=== PATIENT | female | born 1990 | race Caucasian/White ===

== ENCOUNTER 2017-01-26 23:03 | Emergency (ER) | payer OTHER ==
[2017-01-26 23:11] VITALS: BMI 38.4
[2017-01-27] MEDS ORDERED: ALBUTEROL SO4 2.5/IPRATROPIUM 0.5 INH SOL 3 ML VIAL.NEB. NEB STA (00:22)
--- NOTE | 2017-01-27 00:22 | PDOC ---
History of Present Illness - General History Source: Patient Exam Limitations: No Limitations - History of Present Illness Initial Comments: 01/27/17 00:41 The patient is a 26 year old female with significant past medical history of asthma (on prednisone prn and h/o of hospitalizations and intubations) who presents to the ED for SOB, chest tightness, and lip tingling prior to arrival. Patient reports she was eating dinner when she suddenly felt short of breath and chest tightness. She also felt some lip tingling. States she has had the same dinner many times before. She took a claritin, which worsen her symptoms. States she did not take her prednisone prior to arrival. At time of evaluation, she is still feeling chest tightness and wheezing. The patient denies fever, chills, diaphoresis, cough, chest pain, and palpitations. The patient denies abdominal pain, nausea, vomiting, and diarrhea. Allergies: NKDA Social History: No alcohol, tobacco, or drug use reported. Past Surgical History: , Cholecystectomy, Tonsillectomy, and Adenoidectomy PCP: None reported <Connie Rojas - Last Filed: 01/27/17 00:41> - General History Source: Patient <Gold Lopez - Last Filed: 01/27/17 01:49> - General Chief Complaint: Respiratory Stated Complaint: NUMBNESS Time Seen by Provider: 01/27/17 00:17 Past History <Connie Rojas - Last Filed: 01/27/17 00:41> - Past Medical History Asthma: Yes (intubation related to asthma/PNA) - Surgical History Cholecystectomy: Yes - Family Disease History Family Disease History: Diabetes: Mother, Heart Disease: Father ( of [place]), [place] : Grandparents (paternal grandmother liver [place]) - Psycho/Social/Smoking Cessation Hx Anxiety: No Suicidal Ideation: No Smoking History: Never smoked Have you smoked in the past 12 months: No Number of Cigarettes Smoked Daily: 0 If you are a former smoker, when did you quit?: 9 YEARS Hx Alcohol Use: Yes (SOCIAL) Drug/Substance Use Hx: No Substance Use Type: None Hx Substance Use Treatment: No <Gold Lopez - Last Filed: 01/27/17 01:49> - Past Medical History Allergies/Adverse Reactions: Allergies Allergy/AdvReac Type Severity Reaction Status Date / Time No Known Allergies Allergy Verified 01/26/17 23:08 Home Medications: Ambulatory Orders Albuterol Sulfate Inhaler - [Ventolin HFA Inhaler -] 1 - 2 inh PO Q4H #1 inhaler 10/07/15 Fluticasone/Salmeterol [Advair 250-50 Diskus] 1 each IH BID 02/08/16 Montelukast Na [Singulair -] 10 mg PO HS 02/08/16 Ondansetron [Zofran -] 4 mg PO TID PRN #21 tablet 08/19/16 Prednisone [Deltasone -] 20 mg PO DAILY 08/19/16 Prednisone [Deltasone -] 40 mg PO DAILY #6 tablet 01/27/17 Review of Systems - Review of Systems Able to Perform ROS?: Yes Comments:: 01/27/17 00:41 CONSTITUTIONAL: Absent: fever, no chills, no fatigue EYES: Absent: visual changes ENT: +lip tingling Absent: ear pain, no sore throat CARDIOVASCULAR: Absent: chest pain, no palpitations RESPIRATORY: +SOB, chest tightness Absent: cough GI: Absent: abdominal pain, no nausea, no vomiting, no constipation, no diarrhea GENITOURINARY: Absent: dysuria, no frequency, no hematuria MUSCULOSKELETAL: Absent: back pain, no arthralgia, no myalgia SKIN: Absent: rash NEURO: Absent: headache <Bharrat,Connie - Last Filed: 01/27/17 00:41> *Physical Exam - Vital Signs Last Vital Signs Temp Pulse Resp BP Pulse Ox 98.1 F 85 20 137/96 94 L 01/26/17 23:08 01/26/17 23:08 01/26/17 23:08 01/26/17 23:08 01/26/17 23:08 - Physical Exam Comments: 01/27/17 00:41 GENERAL: Well-appearing, well-nourished. No apparent distress. HEENT: Normocephalic, atraumatic. PERRL, EOM intact. Oropharynx is clear. No drooling. No hot potato voice. CARDIOVASCULAR: Normal S1, S2. Regular rate and rhythm. PULMONARY: No evidence of respiratory distress. No conversation dyspnea. Speaks in full sentences. No retractions. Scattered wheezing. No rales or rhonchi. No stridor. ABDOMEN: Soft, non-distended, non-tender. EXTREMITIES: Normal ROM in all four extremities. No gross deformities. SKIN: Warm, dry. No rash NEUROLOGICAL: No focal neurological deficits. <Connie Rojas - Last Filed: 01/27/17 00:41> - Vital Signs Last Vital Signs Temp Pulse Resp BP Pulse Ox 98.1 F 85 20 137/96 94 L 01/26/17 23:08 01/26/17 23:08 01/26/17 23:08 01/26/17 23:08 01/26/17 23:08 <Gold Lopez - Last Filed: 01/27/17 01:49> Medical Decision Making - Medical Decision Making 01/27/17 01:48 Dr. Lopez: The scribe's documentation has been prepared under my direction and personally reviewed by me in its entirery. I confirm that the note above accurately reflects all work, treatment, procedures, and medical decision making performed by me. Patient feels better after treatment in the department. Pt to be discharged on 3 days worth of prednisone. Advise to follow up with her pcp or the doctor referred. <Gold Lopez - Last Filed: 01/27/17 01:49> *DC/Admit/Observation/Transfer - Attestations Scribe Attestion: 01/27/17 00:41 Documentation prepared by Connie Rojas, acting as medical data analyst for Gold Lopez MD/. <Connie Rojas - Last Filed: 01/27/17 00:41> - Discharge Dispostion Admit: No <Godl Lopez - Last Filed: 01/27/17 01:49> Diagnosis at time of Disposition: Asthma exacerbation Allergic reaction Qualifiers: Encounter type: initial encounter Qualified Code(s): T78.40XA - Allergy, unspecified, initial encounter - Discharge Dispostion Disposition: HOME Condition at time of disposition: Stable - Referrals Referrals: STAFF,NOT ON [Primary Care Provider] - Sheridan Martinez MD [Staff Physician] - - Patient Instructions Printed Discharge Instructions: DI for Asthma -- Adult, DI for General Allergic Reactions
[2017-01-27] MEDS ORDERED: predniSONE 20 MG TABLET (UD) PO ONE (00:28)
[2017-01-27] MEDS ORDERED: predniSONE 20 MG TABLET (UD) ONE (00:54)
[2017-01-27 02:23] VITALS: BP 134/89; PULSE 78; TEMP 98
== END 2017-01-27 02:24 | disposition home or self-care (01) ==
LOC: JER 23:03
PROC: 3E0F7GC Introduction of Other Therapeutic Substance into Respiratory Tract, Via Natural or Artificial Opening (ICD-10-PCS; principal; 2017-01-26)
DX: J45.909 Unspecified asthma, uncomplicated (principal); T78.40XA Allergy, unspecified, initial encounter; X58.XXXA Exposure to other specified factors, initial encounter
CPT/HCPCS: 99282-25

== ENCOUNTER 2017-04-04 15:44 | Emergency (ER) | payer OTHER ==
[2017-04-04 16:22] VITALS: BP 122/87; PULSE 76; TEMP 98.1; BMI 38.4
--- NOTE | 2017-04-04 16:58 | PDOC ---
History of Present Illness - General Chief Complaint: Injury Stated Complaint: LAB VARIANCE (PCP SENT) Time Seen by Provider: 04/04/17 16:33 History Source: Patient Exam Limitations: No Limitations - History of Present Illness Initial Comments: 04/04/17 16:53 Patient is a 27-year-old female, history of chronic sinus infections and asthma states yesterday she was in the shower became lightheaded and fell out of shower was witnessed by her who states that he is unsure if she hit her head however did hit the left side of her body including her arm. Patient was seen at urgent care at [facility] who told her to come to emergency department for evaluation and CT scan of the head, also states that she had rash to occipital area wants to rule out for Lyme, recent fatigue. She denies any recent travel, denies any bug bite. Patient states that she does feel fatigued however feels like this in a regular basis. Patient denies any dizziness, no nausea vomiting, no unsteady gait, no visual disturbance. Patient with left wrist pain was performed at urgent care negative for acute fracture Hugo wrap was on. Past Medical History: Denies. Allergies: No known allergies Medications: See medication list Family History: Non-contributory Social History: Denies smoking, alcohol use, or IVDU Review of Systems GENERAL/CONSTITUTIONAL: No fever or chills. No weakness. No weight change. HEAD, EYES, EARS, NOSE AND THROAT: No change in vision. No ear pain or discharge. No sore throat. CARDIOVASCULAR: No chest pain or shortness of breath. RESPIRATORY: No cough, wheezing, or hemoptysis. GASTROINTESTINAL: No nausea, vomiting, diarrhea or constipation. No rectal bleeding. GENITOURINARY: No dysuria, frequency, or change in urination. MUSCULOSKELETAL: No joint or muscle swelling or pain. No neck or back pain. SKIN AND BREASTS: No rash or easy bruising. NEUROLOGIC: No headache, vertigo, loss of consciousness, or loss of sensation. PSYCHIATRIC: No depression or anxiety. ENDOCRINE: No increased thirst. No abnormal weight change. HEMATOLOGIC/LYMPHATIC: No anemia, easy bleeding, or history of blood clots. ALLERGIC/IMMUNOLOGIC: No hives or skin allergy. No latex allergy. Physical Exam: GENERAL: The patient is awake, alert, and fully oriented, in no acute distress. HEAD: Normal with no signs of trauma. There is no visible rash or erythema to occipital area as described in referral from [facility]. EYES: Pupils equal, round and reactive to light, extraocular movements intact, sclera anicteric, conjunctiva clear. ENT: Ears normal, nares patent, oropharynx clear without exudates. Moist mucous membranes. No uvula deviation NECK: Normal range of motion, supple without lymphadenopathy, JVD, or masses. LUNGS: Breath sounds equal, clear to auscultation bilaterally. No wheezes, and no crackles. HEART: Regular rate and rhythm, normal S1 and S2 without murmur, rub or gallop. ABDOMEN: Soft, nontender, normoactive bowel sounds. No guarding, no rebound. No masses. No bruising or abrasions MUSCULOSKELETAL: Normal range of motion, no edema. No clubbing or cyanosis. No cords, erythema, or tenderness. No CVA Tenderness with fist palpation. NEUROLOGICAL: Cranial nerves II through XII grossly intact. Normal speech, normal gait. SKIN: Warm, Dry, normal turgor, no rashes or lesions noted. 04/04/17 16:58 Past History - Past Medical History Allergies/Adverse Reactions: Allergies Allergy/AdvReac Type Severity Reaction Status Date / Time No Known Allergies Allergy Verified 04/04/17 16:17 Home Medications: Ambulatory Orders Amox-Tr/K Cl [Augmentin - 875Mg Tablet] 1 tab PO BID #14 tablet 04/04/17 Fluticasone Prop 0.05% Nasal [Flonase -] 1 - 2 spray NS BID #1 spray.pump Asthma: Yes (intubation related to asthma/PNA) - Surgical History Cholecystectomy: Yes - Family Disease History Family Disease History: Diabetes: Mother, Heart Disease: Father ( of [place]), [place] : Grandparents (paternal grandmother liver [place]) - Immunization History Immunization Up to Date: Yes - Psycho/Social/Smoking Cessation Hx Anxiety: No Suicidal Ideation: No Smoking History: Never smoked Have you smoked in the past 12 months: No Number of Cigarettes Smoked Daily: 0 If you are a former smoker, when did you quit?: 10YEARS Information on smoking cessation initiated: No Hx Alcohol Use: No Drug/Substance Use Hx: No Substance Use Type: None Hx Substance Use Treatment: No *Physical Exam - Vital Signs Last Vital Signs Temp Pulse Resp BP Pulse Ox 98.1 F 76 17 122/87 99 04/04/17 16:18 04/04/17 16:18 04/04/17 16:18 04/04/17 16:18 04/04/17 16:18 Medical Decision Making - Medical Decision Making 04/04/17 17:04 A/P: Patient here for evaluation status post fall yesterday, had questionable hitting her head positive LOC, was seen at urgent care and told to come to emergency department referral sent with the patient for CT scan. Patient also states that practitioner at urgent care noted a rash on occipital area and because fatigue she wants her to rule out Lyme disease however upon arrival there is no rash noted because patient states that she recently feels fatigued although feels fatigued on a regular basis we will send for Lyme test. Also urine , CT scan of the head once urine is negative. Is otherwise awake and alert and oriented, denies any visual disturbance, denies any headache no nausea vomiting, no unsteady gait. 04/04/17 18:45 CT scan of the head demonstrated no acute sinusitis, significant. This may be route of patient is dizziness yesterday which caused her to fall. We'll DC patient home on Augmentin, to continue Flonase. To follow-up in one week for results of Lyme testing I discussed the physical exam findings, ancillary test results and final diagnoses with the patient. I answered all of the patient's questions. The patient was satisfied with the care received and felt comfortable with the discharge plan and treatment plan. The patient will call to arrange follow-up and will return to the Emergency Department with any new, persistent or worsening symptoms. *DC/Admit/Observation/Transfer Diagnosis at time of Disposition: Sinusitis Qualifiers: Sinusitis location: frontal Chronicity: acute Recurrence: recurrent Qualified Code(s): J01.11 - Acute recurrent frontal sinusitis - Discharge Dispostion Disposition: HOME Condition at time of disposition: Good Admit: No - Prescriptions Prescriptions: Amox-Tr/K Cl [Augmentin - 875Mg Tablet] 1 tab PO BID #14 tablet Fluticasone Prop 0.05% Nasal [Flonase -] 1 - 2 spray NS BID #1 spray.pump - Referrals Referrals: Clair Muhammad MD [Primary Care Provider] - Oneil Isaacs MD [Staff Physician] - - Patient Instructions Printed Discharge Instructions: Sinusitis (Alternative Therapy) Additional Instructions: Recommend follow-up with ENT Dr. Isaacs Medication as prescribed until completed Please call [phone] in one week for results of Lyme test - Post Discharge Activity Work/School Note: Back to Work
[2017-04-07 16:33] LABS: IgG P18 Absent (.); IgG P23 Absent (.); IgG P28 Absent (.); IgG P30 Present (.); IgG P39 Present (.); IgG P41 Present (.); IgG P45 Absent (.); IgG P58 Absent (.); IgG P66 Absent (.); IgG P93 Absent (.); IgM P23 Absent (.); IgM P39 Absent (.); IgM P41 Absent (.); LYME IGM WB INTERPRE Negative (.)
== END 2017-04-04 18:56 | disposition home or self-care (01) ==
LOC: JERFT 15:44
DX: J01.11 Acute recurrent frontal sinusitis (principal); Z87.891 Personal history of nicotine dependence; J45.909 Unspecified asthma, uncomplicated; W18.2XXA Fall in (into) shower or empty bathtub, initial encounter; Y93.9 Activity, unspecified; Y92.002 Bathroom of unspecified non-institutional (private) residence as the place of occurrence of the external cause
CPT/HCPCS: 36415; 70450-TC; 84703; 86618; 86666; 99281-25

== ENCOUNTER 2019-06-04 02:00 | Emergency (ER) | payer OTHER ==
[2019-06-04] MEDS ORDERED: ALBUTEROL SO4 2.5/IPRATROPIUM 0.5 INH SOL 3 ML VIAL.NEB. NEB ONE ×2 (02:13→02:20)
[2019-06-04 02:19] VITALS: TEMP 97.1; BMI 25.8
[2019-06-04] MEDS ORDERED: methylPREDNISolone NA SUCC 125 MG/2 ML VIAL IVPUSH ONE (02:20)
--- NOTE | 2019-06-04 02:21 | PDOC ---
History of Present Illness - General Stated Complaint: DIFF BREATHING/ASTHMA Time Seen by Provider: 06/04/19 02:11 - History of Present Illness Initial Comments: 06/04/19 02:17 29 y/o female with a PMH of Asthma (1 intubation, 3 hospitalizations), PNA (w/ extended hospitalization) presents with shortness of breath. Patient states she felt tight all of yesterday and then this morning around 12 a.m. she woke up short of breath. Little relief from her singular and albuterol inhalers. Two month history of productive (greenish sputum) cough for which patient was prescribed Benzoate - no evaluation w/CXR. The patient denies chest pain, lightheadedness, palpitations, nausea/vomiting, diarrhea/constipation. The patient denies recent travel or sick contacts. NKDA Surgical: Gastric Bypass, C/S Past History - Past Medical History Allergies/Adverse Reactions: Allergies Allergy/AdvReac Type Severity Reaction Status Date / Time No Known Allergies Allergy Verified 06/04/19 02:19 Home Medications: Ambulatory Orders Amox-Tr/K Cl [Augmentin - 875Mg Tablet] 1 tab PO BID #14 tablet 04/04/17 Fluticasone Prop 0.05% Nasal [Flonase -] 1 - 2 spray NS BID #1 spray.pump Azithromycin [Zithromax Tri-Johnnie (3 DAYS) -] 500 mg PO DAILY #3 tablet 06/04/19 Asthma: Yes (intubation related to asthma/PNA) - Surgical History Cholecystectomy: Yes - Immunization History Immunization Up to Date: Yes - Psycho Social/Smoking Cessation Hx Smoking History: Never smoked Have you smoked in the past 12 months: No Number of Cigarettes Smoked Daily: 0 If you are a former smoker, when did you quit?: 10YEARS Hx Alcohol Use: No Drug/Substance Use Hx: No Substance Use Type: None Hx Substance Use Treatment: No Review of Systems - Review of Systems Able to Perform ROS?: Yes Constitutional: No: Chills, Fever Respiratory: Yes: Shortness of Breath, Productive cough (greenish sputum) Cardiac (ROS): No: Chest Pain, Lightheadedness ABD/GI: No: Constipated, Diarrhea, Nausea, Vomiting *Physical Exam - Physical Exam Comments: 06/04/19 02:19 Triage VS reviewed Alert, mild distress Respiratory: Scattered A/P expiratory wheezes CV: S1, S2 Abdomen: soft, no TTP, (+) bowel sounds Extremity: ED Treatment Course - LABORATORY CBC & Chemistry Diagram: 06/04/19 02:30 06/04/19 03:00 Medical Decision Making - Medical Decision Making 06/04/19 02:20 29 y/o female with presumptive acute asthma exacerbation. Uncomfortable, SpO2 92% on RA w/increased WOB 06/04/19 02:59 S/p Duo Neb x2, patient more comfortable Labs hemolyzed 06/04/19 03:00 CBC unremarkable 06/04/19 03:02 Patient reassessed @ bedside No wheezing auscultated on posterior lung hoffman 06/04/19 03:43 No infiltrate on CXR, however since patient has h/o two month cough and h/o severe PNA requiring hospitalization, will treat for possible atypical PNA OTD of Zithromax in ED + Z pack 06/04/19 03:49 Patient c/o burning and pain w/IV Zithromax; line flushed x2 and patient continues to c/o burning but no pain Will give PO Zithromax and observe for any possible reaction 06/04/19 03:59 No pain/burning, shortness of breath, pruritus w/PO Zithromax. Will discharge home with Z-pack and return precautions. Clinical Impression: Asthma Exacerbation possibly 2/2 Atypical PNA I discussed the physical exam findings, ancillary test results and final diagnoses with the patient. I answered all of the patient's questions. The patient was satisfied with the care received and felt comfortable with the discharge plan and treatment plan. The patient will return to the Emergency Department with any new, persistent or worsening symptoms. 06/04/19 05:09 Addendum - patient observed for 20 minutes w/no SiSx of anaphylaxis and D/C home Discharge - Discharge Information Problems reviewed: Yes Clinical Impression/Diagnosis: Asthma exacerbation Condition: Fair Disposition: HOME - Admission No - Additional Discharge Information Prescriptions: Azithromycin [Zithromax Tri-Johnnie (3 DAYS) -] 500 mg PO DAILY #3 tablet - Follow up/Referral Referrals: Clair Muhammad MD [Primary Care Provider] - - Patient Discharge Instructions Additional Instructions: We have sent an antibiotic to your pharmacy. Please complete the entire prescribed course Follow up with your primary care doctor in the next 3 days. Return to the Emergency Department for any new/worsening/concerning symptoms. - Post Discharge Activity
[2019-06-04] MEDS ORDERED: DEXAMETHASONE SOD PHOSPHATE 10 MG/1 ML VIAL IVPUSH ONE (02:23)
--- NOTE | 2019-06-04 02:28 | PDOC ---
Attending Attestation - Resident Resident Name: Vee Martines - ED Attending Attestation I have performed the following: I have examined & evaluated the patient, The case was reviewed & discussed with the resident, I agree w/resident's findings & plan - HPI HPI: 06/04/19 04:49 Pt comes with asthma exacerbation. She ahas a cough x 2 months and a cold and the weather is changing and she states that once or twice a year she has a bad asthma attack and she needs prednisone. - Physicial Exam PE: 06/05/19 01:22 Pt has wheeze that is patchy at the end of deep breaths. Afebrile Heart RRR Abd soft NT ND - Medical Decision Making 06/05/19 01:23 Pt has an atypical pneumonia; dry cough x 2 mos. She will be treated with zpak. Asthma optimized with treatment in the ER. Pt will go home with PMD follow up. Breathing well; appears well; vastly improved.
[2019-06-04] MEDS ORDERED: ONDANSETRON 4 MG/2 ML VIAL IVPUSH ONE (02:34)
[2019-06-04] MEDS ORDERED: ONDANSETRON 4 MG/2 ML VIAL ONE (02:35)
[2019-06-04] MEDS ORDERED: DEXAMETHASONE SOD PHOSPHATE 10 MG/1 ML VIAL ONE (02:35)
[2019-06-04 02:42] LABS: BASO % 0.7 % (0-2.0); EOS % 8.1 % (0-4.5); HEMOGLOBIN 12.9 GM/dL (10.7-15.3); LYMPH % 41.5 % (8-40); MCH 28.4 pg (25.7-33.7); MCHC 33.8 g/dl (32.0-36.0); MEAN PLT VOLUME 9.4 fl (7.5-11.1); NEUT % 44.7 % (42.8-82.8); PLATELET COUNT 158 K/MM3 (134-434); RBC 4.52 M/mm3 (3.60-5.2); RDW 13.4 % (11.6-15.6); WHITE BLOOD COUNT 7.1 K/mm3 (4.0-10.0)
[2019-06-04] MEDS ORDERED: AZITHROMYCIN 250 MG TABLET PO ONE ×2 (03:27→03:48)
[2019-06-04] MEDS ORDERED: AZITHROMYCIN IVPB 500 MG/250 ML BAG IVPB ONE (03:29)
[2019-06-04] MEDS: AZITHROMYCIN IVPB 500 MG in DEXTROSE 5%-WATER - 250 ML IVPB ONE ×2 (03:34→03:52)
[2019-06-04 03:46] VITALS: PULSE 86
[2019-06-04] MEDS ORDERED: AZITHROMYCIN 250 MG TABLET ONE (03:50)
[2019-06-04 04:24] LABS: ALBUMIN 3.8 g/dl (3.4-5.0); BILIRUBIN,TOTAL 1.3 mg/dL (0.2-1); BLOOD UREA NITROGEN 12.9 mg/dL (7-18); CALCIUM 8.4 mg/dL (8.5-10.1); CREATININE 0.7 mg/dL (0.55-1.3); POTASSIUM 3.5 mmol/L (3.5-5.1); TOT PROT 6.4 g/dl (6.4-8.2)
== END 2019-06-04 04:32 | disposition home or self-care (01) ==
LOC: JER 02:00
PROC: 3E0F7GC Introduction of Other Therapeutic Substance into Respiratory Tract, Via Natural or Artificial Opening (ICD-10-PCS; principal; 2019-06-04)
PROC: 3E0333Z Introduction of Anti-inflammatory into Peripheral Vein, Percutaneous Approach (ICD-10-PCS; 2019-06-04)
PROC: 3E033GC Introduction of Other Therapeutic Substance into Peripheral Vein, Percutaneous Approach (ICD-10-PCS; 2019-06-04)
DX: J45.901 Unspecified asthma with (acute) exacerbation (principal)
CPT/HCPCS: 36415; 71045-TC-FY; 80053; 84703; 85025; 94640; 96374; 96375; 99284-25; J1100

== ENCOUNTER 2019-09-18 19:05 | Inpatient (IN) | payer OTHER ==
[2019-09-18] MEDS ORDERED: RAPID SEQUENCE INTUBATION KIT NR ONE (19:11)
[2019-09-18] MEDS ORDERED: ALBUTEROL SO4 0.083% IH SOL 2.5 MG/3 ML VIAL.NEB. NEB ONE (19:16)
[2019-09-18] MEDS ORDERED: ALBUTEROL SO4 2.5/IPRATROPIUM 0.5 INH SOL 3 ML VIAL.NEB. NEB ONE (19:16)
[2019-09-18] MEDS ORDERED: MAGNESIUM SULF 50% (8.12 MEQ/2 ML-1 GM VIAL) IVPB ONE (19:18)
[2019-09-18] MEDS ORDERED: DEXAMETHASONE SOD PHOSPHATE 10 MG/1 ML VIAL ONE (19:23)
--- NOTE | 2019-09-18 19:33 | PDOC ---
History of Present Illness - General Chief Complaint: Asthma Stated Complaint: ASTHMA Time Seen by Provider: 09/18/19 19:33 History Source: Patient, Spouse Exam Limitations: No Limitations - History of Present Illness Initial Comments: HPI: 29 y/o female presenting to [facility] ER complaining of shortness of breath and wheezing. Arrived via ems in acute respiratory distress. Given DuoNeb and Epi prior to arrival. Pt has a h/o asthma. Symptoms have been worse over the past month - has used 4 MDIs in 6 weeks. Also complaining of cough productive of clear vs white sputum since June. Worse at night. Started on Azithromycin and Pepcid by ENT two weeks ago. Followed up with PCP on Wednesday and started on Levaquin and steroids for PNA. Has implanted control. Medical Hx: - Asthma, has been intubated once in 2016, but this was for septic PNA (NOT ASTHMA), baseline peak flow 350 per pt Surgical Hx: - Gastric bypass w/ complicated 3 month post-op course, performed at [facility] - Cholecystectomy Review of Systems: 10 point review of systems completed. All systems negative except as noted above. Physical Examination: Vital signs and nursing notes reviewed. Constitutional- Adult female in acute respiratory distress. Found semi-fowlers in resus room. Head- Normocephalic. No obvious external signs of trauma. Neck- Supple, trachea is midline. Cardiovascular / Chest- Tachycardic rate with regular rhythm. No murmur, rubs, clicks, or gallops. Peripheral pulses- radial pulses full. No pretibial edema. Respiratory- Breathing shallow and labored. Subcostal retractions. Equal chest rise and fall. Diffuse expiratory wheezing and rhonchi. Gastrointestinal- Discomfort in RUQ without grimace, rebound, or guarding. Globally, abdomen is soft and nondistended. Neuro- Alert and oriented x4. Moving all four extremities spontaneously. Skin- Warm, dry, and intact. Psych- Affect- appropriate. Mood- normal. Speech was non-labored, non- pressured. MDM: 29 y/o female presenting with acute respiratory distress in setting of several weeks of increased asthmatic symptoms. Afebrile. Vitals remarkable for tachycardia without hypotension. Hypoxic on nasal cannula with restrictive pattern on continuous waveform capnography. Physical exam as described above. Placed on BPAP with improvement of SPO2 and work of breathing. Received additional IBDs and Magnesium. ED sepsis order set initiated. Will obtain CTA of chest evaluate for PE and CTAP to evaluate for right sided abdominal pain as pt is s/p cholecystectomy and complicated gastric bypass surgery. 18 Sep 2019 21:09 PM Pt transitioned from BPAP to nasal cannula. Capnography waveform significantly improved from arrival. Shark fin has resolved. Reviewed laboratory data. Noted elevated lactic acid. Suspect secondary to albuterol administration. Low suspicion for septic infection. Reviewed radiology data. Will treat pt for PNA complicated by moderately severe asthma exacerbation. Ordered Ceftriaxone and Azithromycin for abx coverage. Noted possible ileus. Pt reports several days of constipation that resolved today with milk of magnesia. Three BMs today. 18 Sep 2019 23:26 PM Telephone discussion with resident Dr. Hassan. Verbally appraised of the pts HPI, ED course, and current plan of management. Will admit pt to med/surg for attending Dr. Esparza. Christiano Zheng M.D., PGY2 Emergency Medicine Resident Past History - Past Medical History Allergies/Adverse Reactions: Allergies Allergy/AdvReac Type Severity Reaction Status Date / Time No Known Allergies Allergy Verified 09/18/19 19:44 Home Medications: Ambulatory Orders Fluticasone Prop 0.05% Nasal [Flonase -] 1 - 2 spray NS BID #1 spray.pump Albuterol Sulfate [Albuterol Sulfate Hfa] 2 inh IN QID PRN 09/18/19 Fluticasone Propion/Salmeterol [Wixela 500-50 Inhub] 2 inh IH DAILY 09/18/19 Levofloxacin 750 mg PO DAILY 09/18/19 predniSONE [Deltasone -] 20 mg PO BID 09/18/19 Asthma: Yes (intubation related to asthma/PNA) COPD: No Other medical history: intubated 1 time in past - Surgical History Cholecystectomy: Yes - Immunization History Immunization Up to Date: Yes - Psycho Social/Smoking Cessation Hx Smoking History: Never smoked Have you smoked in the past 12 months: No Number of Cigarettes Smoked Daily: 0 If you are a former smoker, when did you quit?: 10YEARS Information on smoking cessation initiated: No Hx Alcohol Use: No Drug/Substance Use Hx: No Substance Use Type: None Hx Substance Use Treatment: No *Physical Exam - Vital Signs Last Vital Signs Temp Pulse Resp BP Pulse Ox 106 H 32 H 142/87 98 09/18/19 19:14 09/18/19 19:14 09/18/19 19:14 09/18/19 19:15 Vital Signs - Vital Signs #1 Time: 23:02 Blood Pressure: 94/51 BP Location: Right Arm Blood Pressure Position: Sitting Pulse Rate: 81 Respiratory Rate: 20 O2 Sat by Pulse Oximetry (%): 98 Oxygen Delivery Method: Nasal Cannula Oxygen Flow Rate: 3 ED Treatment Course - LABORATORY CBC & Chemistry Diagram: 09/18/19 19:30 09/18/19 19:30 Medical Decision Making - Critical Care Time Total Critical Care Time (minutes): 60 Critical Care Statement: The care of this patient involved high complexity decision making to prevent further life threatening deterioration of the patient 's condition and/or to evaluate & treat vital organ system(s) failure or risk of failure. Discharge - Discharge Information Problems reviewed: Yes Clinical Impression/Diagnosis: Hypoxia Asthma exacerbation Qualifiers: Asthma severity: moderate Asthma persistence: unspecified Qualified Code(s): J45.901 - Unspecified asthma with (acute) exacerbation Pneumonia Qualifiers: Pneumonia type: due to unspecified organism Laterality: bilateral Lung location : unspecified part of lung Qualified Code(s): J18.9 - Pneumonia, unspecified organism Condition: Stable - Admission Yes - Follow up/Referral Referrals: Clair Muhammad MD [Primary Care Provider] - - Patient Discharge Instructions - Post Discharge Activity
--- NOTE | 2019-09-18 19:37 | PDOC ---
Attending Attestation - Resident Resident Name: Christiano Zheng - ED Attending Attestation I have performed the following: I have examined & evaluated the patient, The case was reviewed & discussed with the resident, I agree w/resident's findings & plan - HPI HPI: 09/18/19 22:26 see resident hpi - Physicial Exam PE: 09/18/19 22:26 agree with resident exam - Medical Decision Making 09/18/19 22:26 29-year-old female with history of asthma with intubation x1 in the past with persistent cough for several weeks status post treatment for pneumonia recently now with severe shortness of breath stating she thinks she may need to be intubated on arrival Patient rapidly improved with a short course of BiPAP, magnesium 2 g IV as well as an additional DuoNeb and albuterol nebulizers x2 She is currently off BiPAP and able to have a calm conversation with her Currently awaiting CTA results of the chest to rule out PE versus nonvisualized infiltrate on chest x-ray Incidentally patient noted that she has been having some right-sided abdominal pain CT scan of the abdomen and pelvis performed as well Due to presentation will likely hold for observation versus admission pending results
[2019-09-18 19:48] LABS: BASO % 0.5 % (0-2.0); EOS % 0.2 % (0-4.5); HEMATOCRIT 40.6 % (32.4-45.2); HEMOGLOBIN 13.4 GM/dL (10.7-15.3); LYMPH % 28.5 % (8-40); MCH 28.1 pg (25.7-33.7); MEAN PLT VOLUME 9.9 fl (7.5-11.1); MONO % 5.7 % (3.8-10.2); NEUT % 65.1 % (42.8-82.8); PLATELET COUNT 271 K/MM3 (134-434); RBC 4.78 M/mm3 (3.60-5.2); RDW 14.4 % (11.6-15.6); WHITE BLOOD COUNT 11.9 K/mm3 (4.0-10.0)
[2019-09-18 19:58] LABS: ARTERIAL BLOOD GAS PCO2 40.3 mmHg (35-45); ARTERIAL BLOOD GAS pH 7.35 (7.35-7.45)
[2019-09-18 19:59] LABS: ARTERIAL BLOOD GAS BASE EXCESS -2.9 meq/l (-2-2); ARTERIAL BLOOD GAS PO2 79.3 mmHg (80-100)
[2019-09-18 20:00] LABS: ALLENS TEST POSITIVE
[2019-09-18 20:01] LABS: CARBOXYHEMOGLOBIN < 0.5 % (0-2)
[2019-09-18 20:15] LABS: ALBUMIN 4.4 g/dl (3.4-5.0); ALK PHOS 106 U/L (45-117); ANION GAP 5 MMOL/L (8-16); BLOOD UREA NITROGEN 12.7 mg/dL (7-18); CALCIUM 8.8 mg/dL (8.5-10.1); CHLORIDE 109 mmol/L (98-107); CO2 25 mmol/L (21-32); CREATININE 0.7 mg/dL (0.55-1.3); GLUCOSE,RANDOM 121 mg/dL (74-106); MAGNESIUM 2.3 mg/dL (1.8-2.4); PHOSPHOROUS 4.1 mg/dL (2.5-4.9); POTASSIUM 3.6 mmol/L (3.5-5.1); SGOT/AST 18 U/L (15-37); SGPT/ALT 42 U/L (13-61); SODIUM 139 mmol/L (136-145); TOT PROT 7.4 g/dl (6.4-8.2)
[2019-09-18 21:00] LABS: INR 1.14 (0.83-1.09); PROTHROMBIN TIME (PATIENT) 13.5 SEC (9.7-13.0)
[2019-09-18 21:02] LABS: ACTIVATED PTT 27.9 SECONDS (25.2-36.5)
[2019-09-18] MEDS ORDERED: LACTATED RINGERS SOLUTION 1000 ML INFUS.BAG IV ONE (22:52)
[2019-09-18] MEDS ORDERED: CEFTRIAXONE 2,000 MG in DEXTROSE 5%-WATER - 50 ML IVPB ONE (22:59)
[2019-09-18] MEDS ORDERED: AZITHROMYCIN IVPB 500 MG in DEXTROSE 5%-WATER - 250 ML IVPB ONE (22:59)
[2019-09-18] MEDS ORDERED: CEFTRIAXONE 2 GM/100 ML BAG IVPB ONE (23:22)
[2019-09-19] MEDS ORDERED: AZITHROMYCIN IVPB 500 MG/250 ML BAG IVPB ONE (00:01)
--- NOTE | 2019-09-19 00:09 | PN ---
Teaching Attending Note Name of Resident: Victor M Hassan ATTENDING PHYSICIAN STATEMENT I saw and evaluated the patient. I reviewed the resident's note and discussed the case with the resident. I agree with the resident's findings and plan as documented. SUBJECTIVE: Patient is a 29 year old woman with PMH of Asthma, Gastric bypass and Cholecystectomy presenting to the ER complaining of shortness of breath and wheezing. Arrived via EMS in acute respiratory distress. Given DuoNeb and Epinephrine prior to arrival. Symptoms have been worse over the past month - has used 4 MDIs in 6 weeks. Also complaining of cough productive of clear vs white sputum since June. Worse at night. Started on Azithromycin and Pepcid by ENT two weeks ago. Followed up with PCP on Wednesday and started on Levaquin and steroids for pneumonia. Intubated in October 2015, at [facility] in [facility] for pneumonia and asthma exacerbation. Denies alcohol, tobacco or illicit drug use. No sick contacts or recent travels. Has Nexplanon implanted control in her arm and has had "unusual" heavy menstrual bleeding from September 01 to 2019. has FH of CKD, HTN, DM and Asthma. OBJECTIVE: Alert Vital Signs Period Temp Pulse Resp BP Sys/Carrington Pulse Ox Last 24 Hr 98.4 F 80-108 15-32 94-142/51-87 85-100 HEENT: No Jaundice, eye redness or discharge, PERRLA, EOMI. Normocephalic, atraumatic. External ears are normal and hearing is grossly intact. No nasal discharge. Neck: Supple, nontender. No palpable adenopathy or thyromegaly. No JVD Chest: Good effort. Diffuse wheezing. Clear to percussion. Heart: Regular. No S3, rub or murmur. Abdomen: Not distended, soft, nontender and no HSM. No rebound or guarding. Normal bowel sounds. Ext: Peripheral pulses intact. No leg edema. Skin: Warm and dry. No petechiae, rash or ecchymosis. Neuro: Alert. Oriented x3. CN 2-12 grossly intact. Sensation grossly intact in all four extremities and DTR are symmetric. Psych: Appropriate mood and affect. Good insight. Home Medications Medication Instructions Recorded Fluticasone Prop 0.05% Nasal 1 - 2 spray NS BID #1 spray.pump 04/04/17 [Flonase -] Albuterol Sulfate [Albuterol 2 inh IN QID PRN 09/18/19 Sulfate Hfa] Fluticasone Propion/Salmeterol 2 inh IH DAILY 09/18/19 [Wixela 500-50 Inhub] Levofloxacin 750 mg PO DAILY 09/18/19 predniSONE [Deltasone -] 20 mg PO BID 09/18/19 Abnormal Lab Results 09/18/19 09/18/19 09/18/19 19:30 19:30 19:30 WBC 11.9 H PT with INR INR ABG pO2 at Pt Temp 79.3 L ABG HCO3 21.9 L ABG Base Excess -2.9 L Chloride 109 H Anion Gap 5 L Random Glucose 121 H Lactic Acid 09/18/19 09/18/19 19:30 20:10 WBC PT with INR 13.50 H INR 1.14 H ABG pO2 at Pt Temp ABG HCO3 ABG Base Excess Chloride Anion Gap Random Glucose Lactic Acid 2.5 H* ASSESSMENT AND PLAN: 1. Pneumonia/Asthma exacerbation/Acute hypoxic respiratory failure - Pneumonia may be the precipitating factor for asthma exacerbation. No acute abnormality on CXR. Chest/thorax CTA didnot show pulmonary embolism, but possible RML and CLAUDIA infiltrates. CT abdomen/pelvis showed hepatomegaly with fatty infiltration of liver, fluid filled small bowel loops in pelvis suggestive of ileus. EKG shows NSR with no significant changes. In the ER she got MgSO4, Lactated ringers , Rocephin, Azithromycin and Albuterol. Patient transitioned from BPAP to 3L/ minute nasal cannula oxygen. Will give Solumedrol 60 mg q hours, Symbicort, Singulair and consult Pulmonary. Monitor peak flow, check HbA1c and trend lactic acid. Consult CONSTRUCTION MATERIALS TESTER for menometrorrhagia. Will continue comprehensive care for all of patients comorbid conditions. 2. Overweight Counseled on the risks associated with overweight. Will provide patient all the necessary assistance, counseling and positive reinforcement to facilitate weight loss. Consult custodian athletic equipment. 3. DVT prophylaxis - Lovenox 40 mg SQ q 24 hours. 4. Advance directives - Full code
--- NOTE | 2019-09-19 01:13 | HP ---
CHIEF COMPLAINT: SOB PCP: Dr Clair Muhammad HISTORY OF PRESENT ILLNESS: Pt is a 29 y/o F with a significant past medical history of asthma who presented to [facility] due to increasing shortness of breath. Pt endorses that for the past approximately 2 months, she has been more short of breath and experiencing a cough productive of whitish sputum. Pt states she uses albuterol nebulizers at home which have provided little to no relief. Pt endorses she visited her ENT physician a few weeks ago who placed her on a z-franki which has provided her little relief. Pt visited her PMD this past Wednesday where she was referred for a CXR due to her symptoms; pt was placed on Levaquin and 40 mg PO Prednisone due to CXR results. Yesterday am(09/18/19), pt visited an urgent care due to right sided abdominal pain and increasing vaginal bleeding. Pt endorses she has been experiencing heavy vaginal bleeding since September 01. Pt is on Nexplanon (etonogestrel implant) and states she does not normally experience any menstruation as a result; bleeding resolved on the of this month. Abdominal pain is described as intermittent, achy in nature, and a 6/10 in pain scale. Pt denies any fever, chills, nausea, vomiting. Of note, pt states she was intubated in 2016 in [facility] due to sepsis 2/2 pneumonia. PMH Asthma, Abdominal abscesses s/p gastric bypass SocialHx- Denies T/A/D Surg- Gastric Bypass complicated by abscess formation requiring further surgeries, Tonsilectomy FH- Father ESRD, Mother DM NKDA ER course was notable for: (1) Cef+Azithro (2) 3 amps Duoneb (3) Mag Sulf HOME MEDICATIONS: Home Medications Medication Instructions Recorded Fluticasone Prop 0.05% Nasal 1 - 2 spray NS BID #1 spray.pump 04/04/17 [Flonase -] Albuterol Sulfate [Albuterol 2 inh IN QID PRN 09/18/19 Sulfate Hfa] Fluticasone Propion/Salmeterol 2 inh IH DAILY 09/18/19 [Wixela 500-50 Inhub] Levofloxacin 750 mg PO DAILY 09/18/19 predniSONE [Deltasone -] 20 mg PO BID 09/18/19 REVIEW OF SYSTEMS CONSTITUTIONAL: Absent: fever, chills, diaphoresis, generalized weakness, malaise, loss of appetite, weight change HEENT: Absent: rhinorrhea, nasal congestion, throat pain, throat swelling, difficulty swallowing, mouth swelling, ear pain, eye pain, visual changes CARDIOVASCULAR: Absent: chest pain, syncope, palpitations, irregular heart rate, lightheadedness , peripheral edema RESPIRATORY: PRESENT cough, shortness of breath, dyspnea with exertion, wheezing GASTROINTESTINAL: Absent: abdominal pain, abdominal distension, nausea, vomiting, diarrhea, constipation, melena, hematochezia GENITOURINARY: PRESENT: Heavy Vaginal bleeding MUSCULOSKELETAL: Absent: myalgia, arthralgia, joint swelling, back pain, neck pain SKIN: Absent: rash, itching, pallor HEMATOLOGIC/IMMUNOLOGIC: Absent: easy bleeding, easy bruising, lymphadenopathy, frequent infections ENDOCRINE: Absent: unexplained weight gain, unexplained weight loss, heat intolerance, cold intolerance NEUROLOGIC: Absent: headache, focal weakness or paresthesias, dizziness, unsteady gait, seizure, mental status changes, bladder or bowel incontinence PSYCHIATRIC: Absent: anxiety, depression, suicidal or homicidal ideation, hallucinations. PHYSICAL EXAMINATION Vital Signs - 24 hr 09/18/19 09/18/19 09/18/19 19:14 19:15 19:38 Temperature Pulse Rate 106 H 108 H 106 H Pulse Rate [#1] Pulse Rate [ Right Brachial] Respiratory 32 H Rate Respiratory Rate [#1] Blood Pressure 142/87 Blood Pressure [#1] Blood Pressure [Right Arm] O2 Sat by Pulse 85 L 98 100 Oximetry (%) O2 Sat by Pulse Oximetry (%) [ #1] 09/18/19 09/18/19 09/18/19 19:50 20:00 20:23 Temperature Pulse Rate Pulse Rate [#1] Pulse Rate [ 100 H 101 H 96 H Right Brachial] Respiratory 19 23 H 21 H Rate Respiratory Rate [#1] Blood Pressure Blood Pressure [#1] Blood Pressure 104/71 105/62 118/69 [Right Arm] O2 Sat by Pulse 100 100 98 Oximetry (%) O2 Sat by Pulse Oximetry (%) [ #1] 09/18/19 09/18/19 09/18/19 20:28 22:07 22:16 Temperature 98.4 F Pulse Rate Pulse Rate [#1] Pulse Rate [ 80 Right Brachial] Respiratory 15 Rate Respiratory Rate [#1] Blood Pressure Blood Pressure [#1] Blood Pressure 101/65 [Right Arm] O2 Sat by Pulse 98 99 Oximetry (%) O2 Sat by Pulse Oximetry (%) [ #1] 09/18/19 09/19/19 23:27 00:48 Temperature 97.7 F Pulse Rate Pulse Rate [#1] 81 Pulse Rate [ 84 Right Brachial] Respiratory 18 Rate Respiratory 20 Rate [#1] Blood Pressure Blood Pressure 94/51 L [#1] Blood Pressure 98/60 [Right Arm] O2 Sat by Pulse 95 Oximetry (%) O2 Sat by Pulse 98 Oximetry (%) [ #1] GENERAL: NAD HEAD: Normal with no signs of trauma. EYES: EOMI Sclera clear EARS, NOSE, THROAT: MMM NECK: Supple LUNGS: Good air entry. No wheezing at time of my exam. HEART: RRR S1S2 ABDOMEN: NDNT. MUSCULOSKELETAL: FROM LOWER EXTREMITIES: No CCE NEUROLOGICAL: Cranial nerves II-XII intact. Normal speech PSYCHIATRIC: Cooperative. Good eye contact. Appropriate mood and affect. SKIN: Warm, dry, normal turgor, no rashes or lesions noted, normal capillary refill. Laboratory Results - last 24 hr 09/18/19 09/18/19 09/18/19 19:30 19:30 19:30 WBC RBC Hgb Hct MCV MCH MCHC RDW Plt Count MPV Absolute Neuts (auto) Neutrophils % Lymphocytes % Monocytes % Eosinophils % Basophils % Nucleated RBC % PT with INR INR PTT (Actin FS) D-Dimer Anticoagulation Therapy No Result Required. Puncture Site Left radial ABG pH 7.35 ABG pCO2 at Pt Temp 40.3 ABG pO2 at Pt Temp 79.3 L ABG HCO3 21.9 L ABG O2 Sat (Measured) 95.0 ABG O2 Content 40.3 ABG Base Excess -2.9 L Marco Antoino Test Positive Carboxyhemoglobin < 0.5 Methemoglobin 1.0 O2 Delivery Device No Result Required. Oxygen Flow Rate No Vent Mode No Result Required. Vent Rate No Result Required. Mechanical Rate No Result Required. Pressure Support Vent No Result Required. Sodium 139 Potassium 3.6 Chloride 109 H Carbon Dioxide 25 Anion Gap 5 L BUN 12.7 Creatinine 0.7 Est GFR (CKD-EPI)AfAm 133.81 Est GFR (CKD-EPI)NonAf 115.45 Random Glucose 121 H Lactic Acid Calcium 8.8 Phosphorus 4.1 Magnesium 2.3 Total Bilirubin 1.0 AST 18 ALT 42 Alkaline Phosphatase 106 Creatine Kinase 44 Troponin I < 0.02 Total Protein 7.4 Albumin 4.4 Serum , Qual Blood Type Antibody Screen 09/18/19 09/18/19 09/18/19 19:30 19:30 20:10 WBC 11.9 H RBC 4.78 Hgb 13.4 Hct 40.6 MCV 85.0 MCH 28.1 MCHC 33.0 RDW 14.4 Plt Count 271 D MPV 9.9 Absolute Neuts (auto) 7.7 Neutrophils % 65.1 D Lymphocytes % 28.5 D Monocytes % 5.7 Eosinophils % 0.2 D Basophils % 0.5 Nucleated RBC % 0 PT with INR INR PTT (Actin FS) D-Dimer < 215 Anticoagulation Therapy Puncture Site ABG pH ABG pCO2 at Pt Temp ABG pO2 at Pt Temp ABG HCO3 ABG O2 Sat (Measured) ABG O2 Content ABG Base Excess Marco Antonio Test Carboxyhemoglobin Methemoglobin O2 Delivery Device Oxygen Flow Rate Vent Mode Vent Rate Mechanical Rate Pressure Support Vent Sodium Potassium Chloride Carbon Dioxide Anion Gap BUN Creatinine Est GFR (CKD-EPI)AfAm Est GFR (CKD-EPI)NonAf Random Glucose Lactic Acid 2.5 H* Calcium Phosphorus Magnesium Total Bilirubin AST ALT Alkaline Phosphatase Creatine Kinase Troponin I Total Protein Albumin Serum , Qual Blood Type Antibody Screen 09/18/19 09/18/19 09/18/19 20:10 20:10 20:50 WBC RBC Hgb Hct MCV MCH MCHC RDW Plt Count MPV Absolute Neuts (auto) Neutrophils % Lymphocytes % Monocytes % Eosinophils % Basophils % Nucleated RBC % PT with INR 13.50 H INR 1.14 H PTT (Actin FS) 27.9 D-Dimer Anticoagulation Therapy Puncture Site ABG pH ABG pCO2 at Pt Temp ABG pO2 at Pt Temp ABG HCO3 ABG O2 Sat (Measured) ABG O2 Content ABG Base Excess Marco Antonio Test Carboxyhemoglobin Methemoglobin O2 Delivery Device Oxygen Flow Rate Vent Mode Vent Rate Mechanical Rate Pressure Support Vent Sodium Potassium Chloride Carbon Dioxide Anion Gap BUN Creatinine Est GFR (CKD-EPI)AfAm Est GFR (CKD-EPI)NonAf Random Glucose Lactic Acid Calcium Phosphorus Magnesium Total Bilirubin AST ALT Alkaline Phosphatase Creatine Kinase Troponin I Total Protein Albumin Serum , Qual Negative Blood Type A NEGATIVE Antibody Screen Negative ASSESSMENT/PLAN: Pt is a 29 y/o F with a significant past medical history of asthma who presented to [facility] due to increasing shortness of breath. # Asthma Exacerbation/Pneumonia - Received 3 Amps Duonebs in ED along w/ Mag Sulf -Received Ceftriaxone and Azithro as CTAP reveals " Subsegmental atelectasis in the right middle lobe and lingular segment of the left upper lobe, cannot rule out superimposed pneumonia." -ABG reviewed. Grossly WNL. Elevated Lactic acid may be 2/2 Albuterol or hyperventilation. - Solumedtrol 60 mg Q8H. Duonebs Q4H PRN -Urine Legionella/Strep -Pulmonology Consult. Appreciate recs. -Monitor Peak Flow -Resume home Singulair and Fluticasone/Solumedrol #Vaginal bleeding and RUQ abdominal pain -Endorsing heavy vaginal bleeding from September 01-September 16. Endorses having Nexplanon (etonogestrel implant). -Will consult PRODUCT SAFETY CONSULTANT. Appreciated Recs. -Consider KUB in am to follow up on ileus seen on CTAP. #FEN No Standing Fluids Monitor Electrolytes Regular Diet #DVT ppx Lovenox SQ 40 Daily. Pt no longer with vaginal bleeding. #Dispo: Med-Surg Visit type - Emergency Visit Emergency Visit: Yes ED Registration Date: 09/18/19 Care time: The patient presented to the Emergency Department on the above date and was hospitalized for further evaluation of their emergent condition. - New Patient This patient is new to me today: Yes Date on this admission: 09/18/19 - Critical Care Critical Care patient: No ATTENDING PHYSICIAN STATEMENT I saw and evaluated the patient. I reviewed the resident's note and discussed the case with the resident. I agree with the resident's findings and plan as documented. SUBJECTIVE: OBJECTIVE: ASSESSMENT AND PLAN:
[2019-09-19] MEDS ORDERED: methylPREDNISolone NA SUCC 40 MG/1 ML VIAL ONE ×2 (01:35→02:32)
[2019-09-19] MEDS: methylPREDNISolone NA SUCC 40 MG/1 ML VIAL IVPUSH SCH ×2 (01:59→02:46)
[2019-09-19 07:10] LABS: HEMATOCRIT 36.1 % (32.4-45.2); HEMOGLOBIN 12.4 GM/dL (10.7-15.3); MCH 28.7 pg (25.7-33.7); MCHC 34.4 g/dl (32.0-36.0); MEAN CELL VOLUME 83.3 fl (80-96); MEAN PLT VOLUME 9.4 fl (7.5-11.1); PLATELET COUNT 177 K/MM3 (134-434); RBC 4.34 M/mm3 (3.60-5.2); WHITE BLOOD COUNT 8.8 K/mm3 (4.0-10.0)
[2019-09-19 07:29] LABS: INR 1.16 (0.83-1.09); PROTHROMBIN TIME (PATIENT) 13.7 SEC (9.7-13.0)
[2019-09-19 07:32] LABS: ACTIVATED PTT 28.5 SECONDS (25.2-36.5)
[2019-09-19 07:36] LABS: ALBUMIN 3.6 g/dl (3.4-5.0); BILIRUBIN,TOTAL 1.2 mg/dL (0.2-1); BLOOD UREA NITROGEN 7.7 mg/dL (7-18); CALCIUM 9.1 mg/dL (8.5-10.1); CREATININE 0.5 mg/dL (0.55-1.3); MAGNESIUM 2.4 mg/dL (1.8-2.4); PHOSPHOROUS 4.6 mg/dL (2.5-4.9); POTASSIUM 4.1 mmol/L (3.5-5.1); TOT PROT 6.5 g/dl (6.4-8.2)
[2019-09-19] MEDS ORDERED: ALBUTEROL SO4 2.5/IPRATROPIUM 0.5 INH SOL 3 ML VIAL.NEB. NEB ONE (09:43)
[2019-09-19] MEDS ORDERED: predniSONE 20 MG TABLET (UD) ONE (09:43)
[2019-09-19] MEDS: predniSONE 20 MG TABLET (UD) PO SCH (09:50)
[2019-09-19] MEDS: ALBUTEROL SO4 2.5/IPRATROPIUM 0.5 INH SOL 3 ML VIAL.NEB. NEB PRN ×3 (09:50→19:13)
[2019-09-19] MEDS ORDERED: ENOXAPARIN NA (PORCINE) 40 MG/0.4 ML DISP.SYRIN SQ SCH (10:00)
[2019-09-19] MEDS ORDERED: PATIENT'S OWN MEDICATION (NON-FORMULARY) (Fluticasone Propion/Salmeterol [Wixela 500-50 In IH SCH (10:00)
--- NOTE | 2019-09-19 11:29 | EKG ---
Test Reason : Blood Pressure : / mmHG Vent. Rate : 093 BPM Atrial Rate : 093 BPM P-R Int : 152 ms QRS Dur : 082 ms QT Int : 356 ms P-R-T Axes : 070 058 064 degrees QTc Int : 442 ms NORMAL SINUS RHYTHM NORMAL ECG WHEN COMPARED WITH ECG OF 08-FEB-2016 01:33, NO SIGNIFICANT CHANGE WAS FOUND Confirmed by Jimmie Riley MD ([id number]) on 09/19/2019 11:28:50 AM Referred By: Confirmed By:Jimmie Riley MD
--- NOTE | 2019-09-19 13:35 | PN ---
Physical Exam: SUBJECTIVE: Patient seen and examined OBJECTIVE: Vital Signs Period Temp Pulse Resp BP Sys/Carrington Pulse Ox Last 24 Hr 97.7 F-98.4 F 62-108 15-32 92-142/49-87 85-100 GENERAL: The patient is awake, alert, and fully oriented, in no acute distress. LUNGS: Breath sounds equal, expiratory wheezing worse on Lt side than Rt HEART: Regular rate and rhythm, S1, S2 without murmur, rub or gallop. ABDOMEN: Soft, nontender, nondistended, hyperactive bs throughuout, minimal ttp , nondistended or tympanitic. EXTREMITIES: 2+ pulses, warm, well-perfused, no edema. NEUROLOGICAL: Cranial nerves II through XII grossly intact. Normal speech, gait not observed. Laboratory Results - last 24 hr 09/18/19 09/18/19 09/18/19 19:30 19:30 20:10 WBC 11.9 H RBC 4.78 Hgb 13.4 Hct 40.6 MCV 85.0 MCH 28.1 MCHC 33.0 RDW 14.4 Plt Count 271 D MPV 9.9 Absolute Neuts (auto) 7.7 Neutrophils % 65.1 D Lymphocytes % 28.5 D Monocytes % 5.7 Eosinophils % 0.2 D Basophils % 0.5 Nucleated RBC % 0 PT with INR INR PTT (Actin FS) D-Dimer < 215 Anticoagulation Therapy Puncture Site ABG pH ABG pCO2 at Pt Temp ABG pO2 at Pt Temp ABG HCO3 ABG O2 Sat (Measured) ABG O2 Content ABG Base Excess Marco Antonio Test Carboxyhemoglobin Methemoglobin O2 Delivery Device Oxygen Flow Rate Vent Mode Vent Rate Mechanical Rate Pressure Support Vent Sodium Potassium Chloride Carbon Dioxide Anion Gap BUN Creatinine Est GFR (CKD-EPI)AfAm Est GFR (CKD-EPI)NonAf Random Glucose Hemoglobin A1c % Lactic Acid 2.5 H* Calcium Phosphorus Magnesium Total Bilirubin AST ALT Alkaline Phosphatase Creatine Kinase Troponin I Total Protein Albumin Serum , Qual Influenza A (Rapid) Influenza B (Rapid) Blood Type Antibody Screen 09/18/19 09/18/19 09/18/19 20:10 20:10 20:50 WBC RBC Hgb Hct MCV MCH MCHC RDW Plt Count MPV Absolute Neuts (auto) Neutrophils % Lymphocytes % Monocytes % Eosinophils % Basophils % Nucleated RBC % PT with INR 13.50 H INR 1.14 H PTT (Actin FS) 27.9 D-Dimer Anticoagulation Therapy Puncture Site ABG pH ABG pCO2 at Pt Temp ABG pO2 at Pt Temp ABG HCO3 ABG O2 Sat (Measured) ABG O2 Content ABG Base Excess Marco Antonio Test Carboxyhemoglobin Methemoglobin O2 Delivery Device Oxygen Flow Rate Vent Mode Vent Rate Mechanical Rate Pressure Support Vent Sodium Potassium Chloride Carbon Dioxide Anion Gap BUN Creatinine Est GFR (CKD-EPI)AfAm Est GFR (CKD-EPI)NonAf Random Glucose Hemoglobin A1c % Lactic Acid Calcium Phosphorus Magnesium Total Bilirubin AST ALT Alkaline Phosphatase Creatine Kinase Troponin I Total Protein Albumin Serum , Qual Negative Influenza A (Rapid) Influenza B (Rapid) Blood Type A NEGATIVE Antibody Screen Negative 09/19/19 09/19/19 09/19/19 06:10 06:10 06:10 WBC 8.8 RBC 4.34 Hgb 12.4 Hct 36.1 MCV 83.3 MCH 28.7 MCHC 34.4 RDW 14.0 Plt Count 177 D MPV 9.4 Absolute Neuts (auto) Neutrophils % Lymphocytes % Monocytes % Eosinophils % Basophils % Nucleated RBC % PT with INR 13.70 H INR 1.16 H PTT (Actin FS) 28.5 D-Dimer Anticoagulation Therapy Puncture Site ABG pH ABG pCO2 at Pt Temp ABG pO2 at Pt Temp ABG HCO3 ABG O2 Sat (Measured) ABG O2 Content ABG Base Excess Marco Antonio Test Carboxyhemoglobin Methemoglobin O2 Delivery Device Oxygen Flow Rate Vent Mode Vent Rate Mechanical Rate Pressure Support Vent Sodium 140 Potassium 4.1 Chloride 110 H Carbon Dioxide 24 Anion Gap 6 L BUN 7.7 Creatinine 0.5 L Est GFR (CKD-EPI)AfAm 149.47 Est GFR (CKD-EPI)NonAf 128.97 Random Glucose 136 H Hemoglobin A1c % Lactic Acid Calcium 9.1 Phosphorus 4.6 Magnesium 2.4 Total Bilirubin 1.2 H AST 16 ALT 38 Alkaline Phosphatase 96 Creatine Kinase Troponin I Total Protein 6.5 Albumin 3.6 Serum , Qual Influenza A (Rapid) Influenza B (Rapid) Blood Type Antibody Screen 09/19/19 09/19/19 06:10 09:30 WBC RBC Hgb Hct MCV MCH MCHC RDW Plt Count MPV Absolute Neuts (auto) Neutrophils % Lymphocytes % Monocytes % Eosinophils % Basophils % Nucleated RBC % PT with INR INR PTT (Actin FS) D-Dimer Anticoagulation Therapy Puncture Site ABG pH ABG pCO2 at Pt Temp ABG pO2 at Pt Temp ABG HCO3 ABG O2 Sat (Measured) ABG O2 Content ABG Base Excess Marco Antonio Test Carboxyhemoglobin Methemoglobin O2 Delivery Device Oxygen Flow Rate Vent Mode Vent Rate Mechanical Rate Pressure Support Vent Sodium Potassium Chloride Carbon Dioxide Anion Gap BUN Creatinine Est GFR (CKD-EPI)AfAm Est GFR (CKD-EPI)NonAf Random Glucose Hemoglobin A1c % 4.8 Lactic Acid Calcium Phosphorus Magnesium Total Bilirubin AST ALT Alkaline Phosphatase Creatine Kinase Troponin I Total Protein Albumin Serum , Qual Influenza A (Rapid) Negative Influenza B (Rapid) Negative Blood Type Antibody Screen Active Medications Generic Name Dose Route Start Last Admin Trade Name Freq PRN Reason Stop Dose Admin Albuterol/Ipratropium 1 amp 09/19/19 01:49 09/19/19 09:50 Duoneb - NEB 1 amp Q4H PRN Administration ASTHMA Famotidine 40 mg 09/19/19 22:00 Pepcid - PO HS ILIANA Montelukast Sodium 10 mg 09/19/19 22:00 Singulair - PO HS ILIANA Prednisone 60 mg 09/19/19 10:00 09/19/19 09:50 Deltasone - PO 60 mg DAILY ILIANA Administration ASSESSMENT/PLAN: This is a 29 y/o F with a significant past medical history of asthma who presented to [facility] due to increasing shortness of breath. #Acute Asthma Exacerbation/Pneumonia 2/2 unknown cause likely viral - L.A. initially 3 will repeat in AM -Received Ceftriaxone and Azithro in ED as CTAP reveals " Subsegmental atelectasis in the right middle lobe and lingular segment of the left upper lobe , cannot rule out superimposed pneumonia.", however PNA likely ruled out at this time given CT findings. - intubated in 2016 for severe respiratory distress per pt in [place] will continue to monitor pt. Pt c/o nightly nighttime awakenings over the past couple weeks. - will d/c abx given lack of concern for bacterial cause - blood culture pending -ABG reviewed. Grossly WNL. -Urine Legionella/Strep ordered -Pulmonology Consulted by night team. - will dc IV steroids and continue po Prednisone 60 mg daily and Duonebs Q4H PRN -Monitor Peak Flow to assess pulmonary response to our management. -Resume home Singulair and Fluticasone/Solumedrol #Vaginal bleeding in setting of nexplanon implant - Endorsing heavy vaginal bleeding from August which was date of her LMP - Endorses having Nexplanon (etonogestrel implant). - Will consult INTERNAL COMBUSTION ENGINEER. She follows with Dr. Young #Acute Rt epigastric pain - The CT showing fluid filled non-dilated small bowel loops in pelvis concerning for ? ileus, fatty liver, small rt upper pole simple cyst as well. - follow up KUB for further assesment of ? ileus - pt admits to constipation but had a BM yesterday, hyperactive BS on exam, minimal ttp. - T bili mild elevation likely 2/2 fatty liver - will rpt in AM. #FENGI -GI ppx- famotidine 40PO HS No Standing Fluids Monitor Electrolytes Regular Diet Dispo: pt will bring records from admission in [place] where she was intubated to see what the cause was. #DVT ppx Lovenox SQ 40 Daily. Pt no longer with vaginal bleeding. Visit type - Emergency Visit Emergency Visit: Yes ED Registration Date: 09/18/19 Care time: The patient presented to the Emergency Department on the above date and was hospitalized for further evaluation of their emergent condition. - New Patient This patient is new to me today: Yes Date on this admission: 09/19/19 - Critical Care Critical Care patient: No - Discharge Referral Referred to [facility] No ATTENDING PHYSICIAN STATEMENT I saw and evaluated the patient. I reviewed the resident's note and discussed the case with the resident. I agree with the resident's findings and plan as documented. SUBJECTIVE: OBJECTIVE: ASSESSMENT AND PLAN:
[2019-09-19 17:22] VITALS: BMI 25.9
[2019-09-19] MEDS ORDERED: CEFTRIAXONE 1 GM in DEXTROSE 5%-WATER - 50 ML IVPB SCH (20:00)
[2019-09-19] MEDS ORDERED: MELATONIN 5 MG TABLETS PO ONE (21:40)
[2019-09-19] MEDS ORDERED: FAMOTIDINE 40 MG TABLET PO SCH (22:00)
[2019-09-19] MEDS ORDERED: MONTELUKAST NA 10 MG TABLET PO SCH (22:00)
[2019-09-19] MEDS ORDERED: AZITHROMYCIN IVPB 500 MG in DEXTROSE 5%-WATER - 250 ML IVPB SCH (23:00)
[2019-09-20] MEDS: ALBUTEROL SO4 2.5/IPRATROPIUM 0.5 INH SOL 3 ML VIAL.NEB. NEB PRN (06:20)
--- NOTE | 2019-09-20 07:28 | CON.PULM ---
Consult Consult Specialty:: PULM/CCM Referred by:: Hospitalist Reason for Consultation:: SOB - History of Present Illness Chief Complaint: SOB History of Present Illness: 29 F, moderate persistent asthma, sees a General Pediatrician at [facility] (had a visit today ). Has had an increase in acute exacerbations over the past 2 months. Not steroid dependent, intubated in 2016 [facility] due to sepsis and PNA, PEF 350. No significant GERD. No current symptoms of OSAS after her bariatric surgery. Was given a Zpack by ENT about 2 weeks ago. Was assessed by her PMD last wednesday and given Levaquin 750mg OD and Prednisone. No travel history or sick contact. CTA: No PE, minimal RML and lingular atelectasis. - History Source History Provided By: Patient Limitations to Obtaining History: No Limitations - Past Medical History ...LMP: 02/03/16 - Alcohol/Substance Use Hx Alcohol Use: No - Smoking History Smoking history: Never smoked Have you smoked in the past 12 months: No Aproximately how many cigarettes per day: 0 If you are a former smoker, when did you quit?: 10YEARS Home Medications - Allergies Allergies/Adverse Reactions: Allergies Allergy/AdvReac Type Severity Reaction Status Date / Time No Known Allergies Allergy Verified 09/18/19 19:44 - Home Medications Home Medications: Ambulatory Orders Fluticasone Prop 0.05% Nasal [Flonase -] 1 - 2 spray NS BID #1 spray.pump Albuterol Sulfate [Albuterol Sulfate Hfa] 2 inh IN QID PRN 09/18/19 Fluticasone Propion/Salmeterol [Wixela 500-50 Inhub] 2 inh IH DAILY 09/18/19 Levofloxacin 750 mg PO DAILY 09/18/19 predniSONE [Deltasone -] 20 mg PO BID 09/18/19 Famotidine [Pepcid -] 40 mg PO HS 09/19/19 Montelukast Sodium [Singulair] 10 mg PO HS 09/19/19 Review of Systems - Review of Systems Constitutional: reports: Malaise. denies: Chills, Fever, Night Sweats Eyes: reports: No Symptoms HENT: reports: No Symptoms Neck: reports: No Symptoms Cardiovascular: reports: Shortness of Breath. denies: Chest Pain, Edema, Palpitations Respiratory: reports: Cough, SOB, SOB on Exertion, Wheezing. denies: Hemoptysis Gastrointestinal: reports: No Symptoms Genitourinary: reports: No Symptoms Breasts: reports: No Symptoms Reported Musculoskeletal: reports: No Symptoms Integumentary: reports: No Symptoms Neurological: reports: No Symptoms Endocrine: reports: No Symptoms Hematology/Lymphatic: reports: No Symptoms Psychiatric: reports: No Symptoms Physical Exam Vital Sings: Vital Signs Temperature 98.2 F 09/20/19 06:00 Pulse Rate 63 09/20/19 06:00 Respiratory Rate 09/20/19 06:00 Blood Pressure 110/59 L 09/20/19 06:00 O2 Sat by Pulse Oximetry (%) 95 09/19/19 22:00 Constitutional: Yes: No Distress, Calm Eyes: Yes: Conjunctiva Clear, EOM Intact HENT: Yes: Atraumatic, Normocephalic Neck: Yes: Supple, Trachea Midline Cardiovascular: Yes: Regular Rate and Rhythm Respiratory: Yes: Cough. No: Accessory Muscle Use, Rales, Rhonchi, SOB, SOB on Exertion, Stridor, Tachypnea, Wheezes ...Inspection: Yes: WNL ...Clubbing: No Gastrointestinal: Yes: Normal Bowel Sounds, Soft Renal/: Yes: WNL Musculoskeletal: Yes: WNL Extremities: Yes: WNL Edema: No Peripheral Pulses WNL: Yes Integumentary: Yes: WNL Neurological: Yes: WNL, Alert, Oriented ...Motor Strength: WNL Psychiatric: Yes: WNL, Alert, Oriented Labs: CBC, BMP 09/19/19 06:10 09/19/19 06:10 ABG Results ABG pH 7.35 (7.35-7.45) 09/18/19 19:30 ABG pCO2 at Pt Temp 40.3 mmHg (35-45) 09/18/19 19:30 ABG pO2 at Pt Temp 79.3 mmHg (80-100) L 09/18/19 19:30 ABG HCO3 21.9 mmol/L (22-27) L 09/18/19 19:30 ABG O2 Sat (Measured) 95.0 % (95-98) 09/18/19 19:30 ABG O2 Content 40.3 % vol 09/18/19 19:30 ABG Base Excess -2.9 meq/l (-2-2) L 09/18/19 19:30 Imaging - Results Cat Scan: Report Reviewed, Image Reviewed Problem List - Problems (1) Asthma exacerbation Code(s): J45.901 - UNSPECIFIED ASTHMA WITH (ACUTE) EXACERBATION Qualifiers: Asthma severity: moderate Asthma persistence: unspecified Qualified Code( s): J45.901 - Unspecified asthma with (acute) exacerbation (2) Cough Code(s): R05 - COUGH (3) Sinusitis Code(s): J32.9 - CHRONIC SINUSITIS, UNSPECIFIED Qualifiers: Sinusitis location: frontal Chronicity: acute Recurrence: recurrent Qualified Code(s): J01.11 - Acute recurrent frontal sinusitis Assessment/Plan Prednisone: can give 10 day course Would monitor off ABX Singulair Measure PEF No smoking DC home on LABA/ICS and PRN nebulized Albuterol If patient's peak flow is close to her baseline of 350 and she feels clinically stable/improved can likely DC home later today. Will follow if remains admitted. Thank you. Dr Blandon
--- NOTE | 2019-09-20 07:52 | PN ---
Teaching Attending Note Name of Resident: Antonio Hassan ATTENDING PHYSICIAN STATEMENT I saw and evaluated the patient. I reviewed the resident's note and discussed the case with the resident. I agree with the resident's findings and plan as documented. Seen and examined; please see resident note for further historical information. I personally verified all [place] historical information and exam findings. Personally interpreted all imaging and diagnostics and reviewed appropriate consults. I reviewed all labs and vital signs as per resident note and EMR as documented. I agree with the above assessment and plan unless supplemented by myself in the following. Seen and examined, shortness of breath improved. Old records reviewed. She was intubated for aspiration pneumonia in [facility] several years ago and self extubated. No PFTs or outpatient records were required. She is hemodynamically stable and afebrile and likely can be discharged home if her peak flows remain good. She is in good spirits. 10 item review of systems completed and is negative aside from as discussed in the subjective data in my own/the resident documentation. VS, labs, imaging reviewed NAD, AAO, resting comfortably in bed. RRR s1/2 no mgr Normal muscle tone, moves all 5 extremities with normal apparent strength Neck is supple, trachea midline, no nicolasa LN Lungs improved wheezes with sym expansion NT ND +BS no nicolasa organomegaly CN2-12 wnl; no FND NC AT EOMI PERRLA Normal mood, appropriate behavior, euthymic affect No skin breakdown or rashes noted Assessment and plan: Patient was seen by pulmonary Magnussen yesterday. She has no significant GERD , no significant OSAS after bariatric surgery. She was given a Z-Johnnie by ENT 2 weeks ago and had prednisone given by primary care at some time before that. Patient is stable off of oxygen, good pre-and post, and is being monitored off of antibiotics. They will complete a 10-day taper of prednisone as per pulmonary and if there peak flow is close to her baseline of 350 which is she will be able to be discharged. This morning, her peak flow is 350 and she is off oxygen and doing well, she will be discharged with follow-up with her marketing producer later today at [facility]. She will continue on Labe/ICS and as needed nebulized albuterol. She is doing well and agreeable with discharge planning. Discussed with pulmonary service. Follow-up with primary care in 3 to 5 days and pulmonary later today. Problem list: Asthma exacerbation, PFTs unknown Lactic acidosis, resolved History of aspiration pneumonia 2016, appreciated discharge summary. She was in [place] and had reactive airways after aspirating. I agree with the problem list as outlined in the resident note alongside the specified follow-up. The hospital course is described as accurate, and I agree with the activity and diet on discharge. Full code
[2019-09-20 08:18] LABS: BASO % 0.2 % (0-2.0); EOS % 0.5 % (0-4.5); HEMATOCRIT 35.7 % (32.4-45.2); MCH 28.4 pg (25.7-33.7); MCHC 33.6 g/dl (32.0-36.0); MEAN CELL VOLUME 84.6 fl (80-96); MEAN PLT VOLUME 9.6 fl (7.5-11.1); MONO % 5.3 % (3.8-10.2); PLATELET COUNT 152 K/MM3 (134-434); RBC 4.22 M/mm3 (3.60-5.2); RDW 14.5 % (11.6-15.6); WHITE BLOOD COUNT 7.8 K/mm3 (4.0-10.0)
[2019-09-20 08:51] LABS: ALBUMIN 3.4 g/dl (3.4-5.0); BILIRUBIN,TOTAL 1.2 mg/dL (0.2-1); CALCIUM 8.8 mg/dL (8.5-10.1); CREATININE 0.7 mg/dL (0.55-1.3); POTASSIUM 3.8 mmol/L (3.5-5.1)
[2019-09-20] MEDS: predniSONE 20 MG TABLET (UD) PO SCH (09:41)
--- NOTE | 2019-09-20 10:10 | DS ---
Physical Exam: SUBJECTIVE: Patient seen and examined at bedside today. No complaints peak flow of 350 which is her baseline. OBJECTIVE: Vital Signs Period Temp Pulse Resp BP Sys/Carrington Pulse Ox Last 24 Hr 97.8 F-98.3 F 60-102 19-20 105-112/55-70 94-96 PHYSICAL EXAM GENERAL: The patient is awake, alert, and fully oriented, in no acute distress. LUNGS: Breath sounds equal, clear to auscultation bilaterally, minimal wheezes at bases, improved with chest PT, no crackles, no accessory muscle use. HEART: Regular rate and rhythm, S1, S2 without murmur, rub or gallop. ABDOMEN: Soft, nontender, nondistended, normoactive bowel sounds, no guarding, no rebound, no hepatosplenomegaly, no masses. EXTREMITIES: 2+ pulses, warm, well-perfused, no edema. LABS Laboratory Results - last 24 hr 09/20/19 09/20/19 09/20/19 07:23 07:27 07:27 WBC 7.8 RBC 4.22 Hgb 12.0 Hct 35.7 MCV 84.6 MCH 28.4 MCHC 33.6 RDW 14.5 Plt Count 152 MPV 9.6 Absolute Neuts (auto) 4.4 Neutrophils % 57.0 Lymphocytes % 37.0 D Monocytes % 5.3 Eosinophils % 0.5 D Basophils % 0.2 Nucleated RBC % 0 Sodium 144 Potassium 3.8 Chloride 112 H Carbon Dioxide 25 Anion Gap 7 L BUN 15.0 Creatinine 0.7 Est GFR (CKD-EPI)AfAm 133.81 Est GFR (CKD-EPI)NonAf 115.45 Random Glucose 102 Lactic Acid 1.9 Calcium 8.8 Total Bilirubin 1.2 H AST 14 L ALT 39 Alkaline Phosphatase 83 Total Protein 6.0 L Albumin 3.4 HOSPITAL COURSE: Date of Admission:09/18/19 This is a 29 y/o F with a significant past medical history of asthma who presented to [facility] due to increasing shortness of breath. #Acute Asthma Exacerbation/Pneumonia 2/2 unknown cause likely viral -Received Ceftriaxone and Azithro in ED as CTAP reveals " Subsegmental atelectasis in the right middle lobe and lingular segment of the left upper lobe , cannot rule out superimposed pneumonia.", however PNA likely ruled out at this time given CT findings. - intubated in 2016 for severe respiratory distress per pt in [place] will continue to monitor pt. Pt c/o nightly nighttime awakenings over the past couple weeks. - will d/c abx given lack of concern for bacterial cause - blood culture pending -Urine Legionella/Strep negative -Pulmonology would like to send pt home on steroid taper for 10 days and that was prescribed to her pharmacy, as well as albuterol neb and she will continue her ICS/LABA combo. - will dc IV steroids and continue po Prednisone 60 mg daily and Duonebs Q4H PRN -Monitor Peak Flow to assess pulmonary response to our management. -Resume home Singulair and Fluticasone/Solumedrol #Vaginal bleeding in setting of nexplanon implant - Endorsing heavy vaginal bleeding from August which was date of her LMP - Endorses having Nexplanon (etonogestrel implant). - pt not having any gross bleeding at this time. - She will follow up with Dr. Young #Acute Rt epigastric pain - The CT showing fluid filled non-dilated small bowel loops in pelvis concerning for ? ileus, fatty liver, small rt upper pole simple cyst as well. - follow up [facility] for further assesment of ? ileus - pt admits to constipation but had a BM yesterday, hyperactive BS on exam, minimal ttp. - T bili mild elevation likely 2/2 fatty liver - will rpt in AM. #FENGI -GI ppx- famotidine 40PO HS while on steroids. No Standing Fluids Monitor Electrolytes Regular Diet Date of Discharge: 09/20/19 Minutes to complete discharge: 30 Discharge Summary Problems reviewed: Yes Reason For Visit: EXACERBATION OF ASTHMA, HYPOXIA, PNEUMONIA Condition: Stable - Instructions Diet, Activity, Other Instructions: You were admitted for an asthma exacerbation (wheezing uncontrollably). While you were here we treated you with steroids and nebulizer treatments. You will need to start using: nebulizer albuterol treatment as needed. Also: steroid taper 10 day course: 10mg tablets X 6 pills once daily = 60mg for 2 days 10mg tablets X 4 pills once daily = 40 mg for two days 10mg tablets X 3 pills once daily = 30mg for two days 10mg tablets X 2 pills once daily = 20mg for two days 10mg tablets X 1 pill once daily = 10 mg for two days then stop Total 32 tablets You should follow up with your maintenance dispatcher (lung doctor) as soon as possible. I understand you have an appointment made for today. You should follow up with your primary care doctor in 1 week. You should continue your home medications as prescribed. You should return to the ER if you have any worsening of your current symptoms or: chest pain, shortness of breath, numbness or weakness in your extremities, or abdominal pain. Referrals: Clair Muhammad MD [Primary Care Provider] - Disposition: HOME - Home Medications Comprehensive Discharge Medication List: Ambulatory Orders Albuterol Sulfate [Albuterol Sulfate Hfa] 2 inh IN QID PRN 09/18/19 Fluticasone Propion/Salmeterol [Wixela 500-50 Inhub] 2 inh IH DAILY 09/18/19 Levofloxacin 750 mg PO DAILY 09/18/19 Famotidine [Pepcid -] 40 mg PO HS 09/19/19 Montelukast Sodium [Singulair] 10 mg PO HS 09/19/19 Albuterol 0.083% Nebulizer Nancy [Ventolin 0.083% Nebulizer Soln -] 1 neb NEB Q4H PRN #1 vial 09/20/19 Albuterol 2.5/Ipratropium 0.5 [Duoneb -] 1 amp NEB Q4H PRN amp 09/20/19 predniSONE [Deltasone -] See Taper PO ASDIR #32 tab 09/20/19 This patient is new to me today: No Emergency Visit: Yes ED Registration Date: 09/18/19 Care time: The patient presented to the Emergency Department on the above date and was hospitalized for further evaluation of their emergent condition. Critical Care patient: No - Discharge Referral Referred to [facility] No ATTENDING PHYSICIAN STATEMENT I saw and evaluated the patient. I reviewed the resident's note and discussed the case with the resident. I agree with the resident's findings and plan as documented. SUBJECTIVE: OBJECTIVE: ASSESSMENT AND PLAN:
[2019-09-20 11:13] VITALS: BP 109/65; PULSE 67; TEMP 98.4
== END 2019-09-20 10:50 | disposition home or self-care (01) | DRG 141 ==
LOC: JER 19:05 → JERBED 23:03 → J8W 09-19 12:11
PROVIDERS: ADMIT Internal Medicine; ATTEND Internal Medicine
DX: J45.41 Moderate persistent asthma with (acute) exacerbation (principal); R00.0 Tachycardia, unspecified; E66.3 Overweight; Z68.25 Body mass index [BMI] 25.0-25.9, adult; N93.9 Abnormal uterine and vaginal bleeding, unspecified; K56.7 Ileus, unspecified; K76.0 Fatty (change of) liver, not elsewhere classified; E87.2 Acidosis; R09.02 Hypoxemia; J98.11 Atelectasis; K76.89 Other specified diseases of liver; J01.11 Acute recurrent frontal sinusitis; R05 Cough; R10.13 Epigastric pain; Z98.84 Bariatric surgery status
CPT/HCPCS: 36415; 36600; 71045-TC-FY; 71275-TC; 74018-TC-FY; 74177-TC; 80053; 82375; 82550; 82803; 83036; 83050; 83605; 83735; 84100; 84484; 84703; 85025; 85027; 85379; 85610; 85730; 86850; 86900; 86901; 87040; 87804; 93005; 93010; 94150; 94640; 94660; 99285-25; Q9967

== ENCOUNTER 2020-09-24 13:40 | Emergency (ER) | payer OTHER ==
[2020-09-24 14:13] VITALS: BP 101/67; PULSE 77; TEMP 98.1; BMI 27.3
[2020-09-24 15:00] LABS: HEMOGLOBIN 12.2 GM/dL (10.7-15.3); LYMPH % 28.9 % (8-40); MCH 27.9 pg (25.7-33.7); MEAN CELL VOLUME 84.7 fl (80-96); MEAN PLT VOLUME 9.3 fl (7.5-11.1); MONO % 3.9 % (3.8-10.2); NEUT % 62.2 % (42.8-82.8); PLATELET COUNT 187 K/MM3 (134-434); RBC 4.37 M/mm3 (3.60-5.2); WHITE BLOOD COUNT 6.4 K/mm3 (4.0-10.0)
[2020-09-24 15:02] LABS: EPI CELLS 18 /uL (0-25.1); HCG,QUALITATIVE URINE Negative; HYALINE CASTS 1 /uL (0-3.1); URINE APPEARANCE CLEAR; URINE BACTERIA 473 /uL (0-1359); URINE BILIRUBIN NEGATIVE (NEGATIVE); URINE COLOR YELLOW; URINE GLUCOSE (UA) NEGATIVE (NEGATIVE); URINE KETONE TRACE (NEGATIVE); URINE LEUK ESTERASE NEGATIVE (NEGATIVE); URINE NITRITE NEGATIVE (NEGATIVE); URINE PROTEIN NEGATIVE (NEGATIVE); URINE WBC 14 /uL (0-25.8)
[2020-09-24 15:14] LABS: POTASSIUM 4.3 mmol/L (3.5-5.1)
[2020-09-24 15:16] LABS: CALCIUM 8.9 mg/dL (8.5-10.1)
[2020-09-24 15:17] LABS: ALBUMIN 3.6 g/dl (3.4-5.0); BLOOD UREA NITROGEN 13.9 mg/dL (7-18)
[2020-09-24 15:20] LABS: CREATININE 0.7 mg/dL (0.55-1.3)
[2020-09-24 15:22] LABS: BILIRUBIN,TOTAL 1.1 mg/dL (0.2-1); TOT PROT 6.6 g/dl (6.4-8.2)
[2020-09-24 16:08] LABS: URINE RBC 30.7 /uL (0-23.9)
[2020-09-24 16:09] LABS: YEAST NEGATIVE (NEGATIVE)
== END 2020-09-24 15:50 | disposition home or self-care (01) ==
LOC: JER 13:40
DX: R53.83 Other fatigue (principal)
CPT/HCPCS: 36415; 80053; 81003; 84703; 85025; 87086; 99283-25

== ENCOUNTER 2020-11-02 18:27 | Emergency (ER) | payer OTHER ==
[2020-11-02 18:45] VITALS: BP 139/76; PULSE 98; TEMP 98.5; BMI 26.6
== END 2020-11-02 19:11 | disposition home or self-care (01) ==
LOC: JER 18:27
DX: R68.83 Chills (without fever) (principal); M79.10 Myalgia, unspecified site
CPT/HCPCS: 87804; 99284-25; C9803; U0003

== ENCOUNTER 2020-12-27 16:32 | Emergency (ER) | payer OTHER ==
[2020-12-27 16:53] VITALS: BP 118/65; PULSE 69; TEMP 98.2; BMI 26.6
== END 2020-12-27 18:02 | disposition home or self-care (01) ==
LOC: JER 16:32
DX: M79.605 Pain in left leg (principal)
CPT/HCPCS: 93971-TC; 99284-25